=== PATIENT | female | born 1955 | race Caucasian/White ===

== ENCOUNTER → 2017-11-08 07:46 | Outpatient (CLI) | payer MEDICAID, SELFPAY ==
[2017-11-08 08:10] LABS: Blood Urea Nitrogen 20 mg/dL (7-18); Creatinine,Serum 1.12 mg/dL (0.55-1.02); Estimated Glomerular Filt Rate 49 ml/min (>60); GFR (African American) 60 ML/MIN (>60)
--- NOTE | 2017-11-08 08:24 | CT_ITS ---
CT angio chest Ordering Physician: Rajiv Dupree MD Patient Age: 61 years: Female HISTORY: ITS.REASON: pulmonary artery aneurysm. Follow-up. Also follow-up Small Nodules TECHNIQUE: Helical acquisition obtained following the bolus administration of 60 mL of Isovue 370 followed by a saline bolus. Axial, sagittal, and coronal reformatted images are generated and reviewed. COMPARISON: 07/17/2015 FINDINGS: The study was tailored for the pulmonary arteries. There is diffuse aneurysmal dilatation of the main pulmonary artery trunk as well as the proximal aspect of both right and left main pulmonary arteries again seen and unchanged since last years study 03/11/2017.. On the sagittalqprojection the main pulmonary artery measures up to 6.6 cm vertical dimension. On previous study this same site measures 6.7 cm mass with no significant change. I measure maximum transverse dimension of the main pulmonary trunk this where it branches at 5.4 cm unchanged since prior study as well.. . Proximal right main pulmonary artery measures up to 3.8 cm a stable . proximal left pulmonary trunk measures up to 3.2 cm. Unchanged. . No pulmonary embolus evidence identified . There are coronary artery calcifications. The heart size is normal. There is mild ectasia of the proximal ascending aorta measuring up to 4.1 cm and basically stable.. 1 mm smaller measurement . There is mild dilatation of the proximal descending thoracic aortameasuring up to 3.5 cm and contains a which if anything appears slightly diminished x 2 mm. There are centrilobular emphysematous changes with hyperinflation and mild bronchialthickening consistent with obstructive chronic bronchitis. Biapical pleural thickening. There are scattered faint nodular densities in the lungs which appear stable measuring up to 4 mm in the right upper lobe. Stable unimpressive can be followed in one year . No pulmonary infiltrates. No pleural effusions or pleural findings.. Calcified granulomas present in the left lower lobe. There remains some increased soft tissue density in the right hilum isunchanged. As are few tiny nodes at the AP window overlying aorta IMPRESSION: 1. Overall no change in the diffuse aneurysmal dilatation of the main pulmonaryartery and right and left main pulmonary artery trunks. 2. No significant change mild aneurysmal dilatation of the thoracic aorta. If anything incrementally less pronounced today but this may be due to blood pressure or phase of cardiac cycle. 3. Stable Centrilobular emphysematous changes with obstructive chronic bronchitis. scattered small pulmonary nodules which appear stable
== END ==
PROVIDERS: PCP Family Medicine; Visit Provider Internal Medicine
DX: I28.1 Aneurysm of pulmonary artery (principal)
CPT/HCPCS: 36415; 71275; 82565; 84520; Q9967

== ENCOUNTER → 2017-11-30 08:36 | Outpatient (POV) | payer MEDICAID, SELFPAY | PROVIDERS: PCP Family Medicine; Visit Provider Internal Medicine | DX: Z00.00 Encounter for general adult medical examination without abnormal findings (principal) ==

== ENCOUNTER → 2018-08-16 10:57 | Outpatient (CLI) | payer MEDICAID, SELFPAY ==
[2018-08-16 12:34] LABS: Alanine Aminotransferase 24 U/L (12-78); Albumin Level 4.4 gm/dL (3.4-5.0); Alkaline Phosphatase 87 U/L (46-116); Aspartate Amino Transferase 19 U/L (15-37); Bilirubin,Direct 0.2 mg/dL (0.0-0.2); Bilirubin,Indirect 0.8 mg/dL (0.0-0.9); Chol/HDL Ratio 2.2 (1-3.5); Cholesterol 171 mg/dL (140-200); HDL Cholesterol 78 mg/dL (29-89); LDL Cholesterol 77 mg/dL (0-130); Total Protein,Serum 7.3 gm/dL (6.4-8.2); Triglycerides 80 mg/dL (30-200); VLDL Cholesterol 16 mg/dL (0-40)
== END ==
PROVIDERS: Visit Provider Internal Medicine
DX: I10 Essential (primary) hypertension (principal); I25.10 Atherosclerotic heart disease of native coronary artery without angina pectoris
CPT/HCPCS: 36415; 80061; 80076

== ENCOUNTER → 2018-08-25 08:21 | Outpatient (CLI) | payer MEDICAID, SELFPAY ==
--- NOTE | 2018-08-25 08:25 | CA_ITS ---
PROCEDURE: 2-D M-mode and color Doppler study INDICATIONS FOR THE TEST: Chest pain COPDX Heart MurmurX Tobacco SmokingEX Palpitations Fatigue Syncope Edema HypertensionXDiabetes Mellitus Rheumatic Fever SOB CROOKS Obesity HyperlipidemiaX Family History HD Additional History PATIENT INFORMATION HEIGHT: 67 WEIGHT:142 GENDER: Female B/P:142/69 2-D/M-MODE INTERPRETATION: 2-D MEASUREMENTS OBSERVED VALUES IN CMS Right Ventricular Dimension (RVDd) 1.6 Interventricular Septum (Thickness)(IVsd) .8 Left Ventricular Internal Dimensions(LVIDd) 4.8 Left Ventricular Posterior Wall (Thickness)(LVPWd) .9 Aortic Root 3.2 Aortic Cusp Separation 1.5 Left Atrial Dimensions (LAD) 1.7 2D 1. Patent is mildly enlarged, left ventricle is normal size, there is no concentric left ventricular hypertrophy, visually ejection fraction 55% with no regional wall motion abnormality. 2. The right atrium and right ventricle are mildly enlarged with normal contractility. 3. The aortic valve is minimally thickened and fibrosed. 4. Mitral and tricuspid valvular grossly normal. 5. The pulmonic valve is poorly visualized. DOPPLER INTERROGATION: Doppler interrogation of the aortic, mitral and tricuspid valvular presence of an tricuspid regurgitation, tricuspid regurgitation jet velocity is inadequate for calculation of the right ventricular systolic pressure, diastolic parameters are within normal range. CONCLUSION: 1. Mild biatrial enlargement, normal left ventricular size, visually estimated ejection fraction 55% with no regional wall motion abnormality, diastolic parameters are within normal range. 2. Mildly enlarged right ventricle with normal contractility. 3. Mild mitral and tricuspid regurgitation 4. No significant pericardial effusion noted.
--- NOTE | 2018-08-25 08:54 | CT_ITS ---
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 Sagittal, and coronal reformatted images are also generated and reviewed. All CT scans at the facility use one or more dose reduction, viz: automated exposure control, ma/kV adjustment per patient size (including targeted exams where dose is matched to indication, i.e. head), or iterative reconstruction technique. FINDINGS: There is mild dilatation of the ascending thoracic aorta at 4.2 cm not significantly changed. The aorta is normal in caliber at the level of the great vessels and then becomes dilated again distal to the origin of the left subclavian artery measuring approximately 3 cm in transverse dimension. There is dilatation of the main pulmonary artery and right and left main pulmonary arteries. The distal aspect main pulmonary artery measures approximately 5 cm. The proximal right main pulmonary artery measures 4.2 cm unchanged. The proximal left main pulmonary artery measures approximately 3 cm unchanged. No pulmonary emboli evident. Normal heart size. No mediastinal or hilar mass or adenopathy. There is mild biapical fibrotic change. There are scattered small pulmonary nodular opacities which are not significant change. Calcified granuloma is present in the left lower lobe. No lobar consolidation or collapse. Calcific plaques present in the proximal aspect of the carotid arteries on both sides. There is a small hiatal hernia. Thoracolumbar scoliosis convex left noted. IMPRESSION: Overall no significant change in the thoracic aortic aneurysm and aneurysmal dilatation of the pulmonary arteries as detailed above.
[2018-08-25 09:53] LABS: Blood Urea Nitrogen 18 mg/dL (7-18); Creatinine,Serum 1.14 mg/dL (0.55-1.02); Estimated Glomerular Filt Rate 48 ml/min (>60); GFR (African American) 58 ML/MIN (>60)
== END ==
PROVIDERS: PCP Family Medicine; Visit Provider Internal Medicine
DX: I49.3 Ventricular premature depolarization (principal); I28.1 Aneurysm of pulmonary artery; I27.20 Pulmonary hypertension, unspecified; I25.10 Atherosclerotic heart disease of native coronary artery without angina pectoris; E78.49 Other hyperlipidemia; I10 Essential (primary) hypertension; I11.9 Hypertensive heart disease without heart failure; I71.2 Thoracic aortic aneurysm, without rupture; J43.8 Other emphysema; R00.1 Bradycardia, unspecified; R94.31 Abnormal electrocardiogram [ECG] [EKG]
CPT/HCPCS: 36415; 71275; 82565; 84520; 93306

== ENCOUNTER → 2018-11-29 13:18 | Outpatient (CLI) | payer MEDICAID, SELFPAY ==
[2018-11-29 13:55] VITALS: PULSE 58; PULSE 60
== END ==
PROVIDERS: PCP Family Medicine; Visit Provider Internal Medicine
DX: J44.9 Chronic obstructive pulmonary disease, unspecified (principal)
CPT/HCPCS: 94060; 94640

== ENCOUNTER → 2018-12-13 10:16 | Outpatient (POV) | payer MEDICAID, SELFPAY | PROVIDERS: Visit Provider Internal Medicine | DX: Z00.00 Encounter for general adult medical examination without abnormal findings (principal) ==

== ENCOUNTER → 2019-08-15 08:47 | Outpatient (CLI) | payer OTHER, SELFPAY ==
--- NOTE | 2019-08-15 09:00 | CT_ITS ---
PROCEDURE: CT ANGIO CHEST CLINCIAL INDICATION: known thoracic aortic aneurysm, due for yearly f/u Follow-up thoracic aortic aneurysm COMPARISON: [facility] CT angio chest from 08/25/2018 TECHNIQUE: IV Contrast: 70ML OPTIRAY 350 Axial images obtained with sagittal and coronal reformats. All CT scans at the facility use one or more dose reduction, viz: automated exposure control, ma/kV adjustment per patient size (including targeted exams where dose is matched to indication, i.e. head), or iterative reconstruction technique. FINDINGS: There is mild ectasia the ascending aorta measuring up to 4.1 cm AP and transverse overall not significantly changed. No evidence dissection. The aorta comes normal in caliber at the arch and then once again to come slightly dilated at 3.3 cm not significantly changed coronary artery calcifications are present. There is dilatation of the main pulmonary artery measuring up to 5.2 cm transverse not significantly changed. The right main pulmonary artery measures up to 3.8 cm and left main pulmonary artery measures up to 3.3 cm. These findings are not significantly changed. No mediastinal or hilar mass or adenopathy. There are mild biapical fibrotic changes with COPD changes. 3 mm noncalcified nodules present in the right upper lobe unchanged. No suspicious pulmonary nodules. The calcified granuloma is present in the left lower lobe. There are degenerative changes in the thoracic spine with S shaped scoliosis. IMPRESSION: Overall stable CT appearance of the chest. No significant change in the ectasia of the ascending aorta with fusiform aneurysmal dilatation of the pulmonary artery trunk and right and left main pulmonary artery consistent with pulmonary arterial hypertension.. Dictated by: Jose Bertrand MD 08/16/2019 13:25 Electronically signed by Jose Bertrand MD in [place] 08/16/2019 13:25
[2019-08-15 09:12] LABS: Blood Urea Nitrogen 29 mg/dL (7-18); Creatinine,Serum 1.32 mg/dL (0.55-1.02); Estimated Glomerular Filt Rate 41 ml/min (>60); GFR (African American) 49 ML/MIN (>60)
== END ==
PROVIDERS: PCP Family Medicine; Visit Provider Nurse Practitioner Family
DX: I25.10 Atherosclerotic heart disease of native coronary artery without angina pectoris (principal); I71.2 Thoracic aortic aneurysm, without rupture; R00.2 Palpitations
CPT/HCPCS: 36415; 71275; 82565; 84520; Q9967

== ENCOUNTER → 2020-07-17 10:46 | Outpatient (CLI) | payer MEDICARE, OTHER, SELFPAY ==
[2020-07-17 12:33] LABS: Alanine Aminotransferase 23 U/L (12-78); Aspartate Amino Transferase 40 U/L (14-36); Bilirubin,Unconjugated 1.2 mg/dL (0.0-1.1)
[2020-07-17 12:34] LABS: Albumin Level 4.9 g/dl (3.5-5.0); Alkaline Phosphatase 97 U/L (38-126); Bilirubin,Direct 0.1 mg/dl (0.0-0.4); Bilirubin,Indirect 1.2 mg/dL (0.0-0.9); Bilirubin,Total 1.3 mg/dl (0.2-1.3); Chol/HDL Ratio 2.1 (1-3.5); Cholesterol 205 mg/dl (140-200); HDL Cholesterol 98 mg/dl (40-60); Total Protein,Serum 7.7 g/dl (6.3-8.2); Triglycerides 136 mg/dl (30-150); VLDL Cholesterol 27 mg/dL (0-40)
[2020-07-17 12:45] LABS: Direct LDL Cholesterol 67.35 mg/dL (100-129)
== END ==
PROVIDERS: Visit Provider Urology
DX: E78.2 Mixed hyperlipidemia (principal); I11.9 Hypertensive heart disease without heart failure; I25.10 Atherosclerotic heart disease of native coronary artery without angina pectoris; I27.20 Pulmonary hypertension, unspecified; I71.2 Thoracic aortic aneurysm, without rupture
CPT/HCPCS: 36415; 80061; 80076

== ENCOUNTER → 2020-08-09 09:28 | Outpatient (CLI) | payer MEDICARE, OTHER, SELFPAY | PROVIDERS: PCP Family Medicine; Visit Provider Internal Medicine Pulmonary Disease | DX: R06.09 Other forms of dyspnea (principal) | CPT/HCPCS: 94060; 94618; 94640; 94726; 94729; 94762 ==

== ENCOUNTER → 2020-09-06 09:11 | Outpatient (CLI) | payer MEDICARE, OTHER, SELFPAY ==
--- NOTE | 2020-09-06 09:25 | CT_ITS ---
PROCEDURE: CT ANGIO CHEST CLINCIAL INDICATION: Thoracic aneurysm 4.1 cm FE (2019) Follow-up thoracic aortic aneurysm COMPARISON: CT CT ANGIO CHEST from 08/15/2019 TECHNIQUE: IV Contrast: 70ML Isovue 370 Axial images obtained with sagittal and coronal reformats. All CT scans at the facility use one or more dose reduction, viz: automated exposure control, ma/kV adjustment per patient size (including targeted exams where dose is matched to indication, i.e. head), or iterative reconstruction technique. FINDINGS: There remains severe dilatation of the main pulmonary artery and the right and left pulmonary artery similar to the previous exam there remains mild fusiform dilatation of the ascending aorta at 4.1 cm. There is no evidence of aortic dissection. No evidence of pulmonary embolus. No mediastinal or hilar mass or adenopathy. Coronary artery calcifications are present. Biapical fibrotic changes are noted with atelectatic or fibrotic changes in the lung bases. No infiltrates or effusions. S-shaped curvature of the thoracic spine is unchanged. Multilevel degenerative disc disease noted in the thoracic spine. IMPRESSION: Overall stable CT appearance of the chest. No change in the diffuse dilatation of the main and right and left pulmonary arteries consistent with pulmonary arterial hypertension. No change mild fusiform dilatation of the thoracic aorta. Dictated by: Jose Bertrand MD 09/07/2020 17:18 Jose Bertrand MD in [place] 09/07/2020 17:18
[2020-09-06 09:43] LABS: Blood Urea Nitrogen 18 mg/dl (7-17); Estimated Glomerular Filt Rate 45 ml/min (>60); GFR (African American) 55 ML/MIN (>60)
== END ==
PROVIDERS: PCP Family Medicine; Visit Provider Urology
DX: E78.2 Mixed hyperlipidemia (principal); I11.9 Hypertensive heart disease without heart failure; I25.10 Atherosclerotic heart disease of native coronary artery without angina pectoris; I27.20 Pulmonary hypertension, unspecified; I71.2 Thoracic aortic aneurysm, without rupture
CPT/HCPCS: 36415; 71275; 82565; 84520; Q9967

== ENCOUNTER → 2020-11-08 12:43 | Outpatient (CLI) | payer MEDICARE, OTHER, SELFPAY ==
--- NOTE | 2020-11-08 12:45 | CA_ITS ---
APPROVED REPORT EXAM: Comprehensive 2D, Doppler, and color-flow Echocardiogram Fire Systems Inspector: Arlin Christine CRT Ht: 5 ft 7 in Wt: 149lbs BSA: 1.78 BP: 171/59 mmHg Indications: COPD, Shortness of Breath 2D Dimensions LVOT 1.98 cm (M/F) 1.5-2.5 LA Volume 51.30 mL LA Volume Index 28.80 mL/m2 (M/F) 16-34 M-Mode Dimensions RVDd 2.71 cm (0.9-2.6) LA Diam 4.09 cm (1.9-4.0) LVDd 4.19 cm (3.5-5.7) Ao Diam 2.91 cm (2.0-3.7) LVDs 3.05 cm (3.5-5.7) IVSd 1.61 cm (0.6-1.1) PWd 0.40 cm (0.6-1.1) EF (Teich) 53.40% FS 27.20% EDV (Teich) 78.10 mL TAPSE 1.98 (<1.7) ESV (Teich) 36.40 mL LV Diastology E Decel Time 147.00 (160-240 msec) E/A Ratio 1.44 MED E' 9.50 (< 7 cm/sec) MED A' 9.80 cm/s E'/MED E' Ratio 8.74 (>14) LAT E' 10.00 (<10 cm/sec) LAT A' 5.80 cm/s E/LAT E' Ratio 8.30 (>14) Aortic Valve AI PHT 466.00 ms AO Peak GR. 7.80 mmHg Mitral Valve MV A Velocity 58.00 (40-130 cm/s) E/A Ratio 1.44 MV Decel. Time 147.00 (160-240 ms) Pulmonary Valve PV Peak Velocity 106.00 (50-150 cm/s) Tricuspid Valve TR P. Velocity 213.00 cm/s RAP Estimate 10.00 mmHg RVSP 28.20 mmHg Left Ventricle Left atrium is moderately enlarged, left ventricle is normal size, there is mild concentric left ventricular hypertrophy, visually estimated ejection fraction 55% with no regional wall motion abnormality, grade 1 diastolic dysfunction seen without tissue Doppler evidence of raise left atrial pressure. Right Ventricle Right atrium and right ventricle are qualitatively moderately enlarged with normal contractility. Aortic Valve Aortic valve is minimally thickened and fibrosed, there is no aortic stenosis or aortic insufficiency. Mitral Valve Mitral valve is minimally thickened, there is mild mitral regurgitation. Tricuspid Valve Tricuspid grossly normal, there is trace tricuspid regurgitation, tricuspid regurgitation jet velocity is inadequate for calculation of the right ventricular systolic pressure. Pulmonic Valve Pulmonic valve is minimally fibrosed, there is mild pulmonic insufficiency. Great Vessels Aortic root is normal size. Pericardium No significant pericardial effusion noted. Conclusion 1. Moderate biatrial enlargement, normal left ventricular size, mild concentric left ventricular hypertrophy, visually estimated ejection fraction 55% with no regional wall motion abnormality, grade 1 diastolic dysfunction without tissue Doppler evidence of raise left atrial pressure. 2. Thickened and calcified aortic valve without aortic stenosis or aortic insufficiency. 3. Mild mitral and trace tricuspid regurgitation. 4. Moderately enlarged right ventricle with normal contractility, inferior vena cava is normal size with normal inspiratory collapse. 5. No significant pericardial effusion noted. Electronically signed by : Rashaun Cleary, 11/10/2020 21:18:29
== END ==
PROVIDERS: PCP Family Medicine; Visit Provider Internal Medicine Pulmonary Disease
DX: I28.8 Other diseases of pulmonary vessels (principal); R00.2 Palpitations
CPT/HCPCS: 93306

== ENCOUNTER → 2021-07-21 08:54 | Outpatient (CLI) | payer MEDICARE, OTHER, SELFPAY ==
[2021-07-21 09:15] LABS: Blood Urea Nitrogen 24 mg/dl (7-17); Estimated Glomerular Filt Rate 38 ml/min (>60); GFR (African American) 46 ML/MIN (>60)
--- NOTE | 2021-07-21 09:42 | CT_ITS ---
FINAL REPORT CLINICAL HISTORY: aneurysm// COMPARISON: 09/06/2020 FINDINGS: Thin section axial CT images of the chest were obtained with contrast. 3D reformatted images were also obtained. This study was performed with techniques to keep radiation doses as low as reasonably achievable (ALARA). Individualized dose reduction techniques using automated exposure control or adjustment of mA and/or kV according to the patient''s size were employed. There is enlargement of the central pulmonary arteries consistent with pulmonary arterial hypertension, unchanged from prior exam. There is no evidence of pulmonary embolism. There is an ascending aortic aneurysm measuring 4.3 cm, stable from prior exam. The descending thoracic aorta is within normal limits. There is no evidence of mediastinal or hilar mass or adenopathy. There is no evidence of pulmonary mass or nodule. No localized inflammatory process is seen within the lungs. Limited images of the upper abdomen are unremarkable. IMPRESSION: No evidence of pulmonary embolism. Stable ascending aortic aneurysm and findings of pulmonary arterial hypertension. Reviewed, Interpreted and Dictated by Mono Harris III, MD Transcribed by Latoya Patton Authenticated by Mono Harris III, MD on 07/21/2021 01:24:24 PM [facility]
== END ==
PROVIDERS: PCP Family Medicine; Visit Provider Nurse Practitioner Family
DX: R00.1 Bradycardia, unspecified; R00.2 Palpitations; I25.10 Atherosclerotic heart disease of native coronary artery without angina pectoris; I11.9 Hypertensive heart disease without heart failure; E78.5 Hyperlipidemia, unspecified; I27.20 Pulmonary hypertension, unspecified; I28.1 Aneurysm of pulmonary artery; I77.810 Thoracic aortic ectasia; J43.9 Emphysema, unspecified; R94.31 Abnormal electrocardiogram [ECG] [EKG]
CPT/HCPCS: 36415; 71275; 82565; 84520; Q9967

== ENCOUNTER 2022-04-19 11:27 | Emergency (ER) | payer MEDICARE, MEDICAID, SELFPAY ==
[2022-04-19 11:53] VITALS: BP 118/56; PULSE 62; RESP 16; TEMP 36.4; O2SAT 95; BMI 23.8
--- NOTE | 2022-04-19 11:59 | EXP.UTC ---
Discharge Plan Disposition Patient Disposition: Home, Self-Care Condition: Good Prescriptions Prescriptions: New cefdinir 300 mg capsule 300 mg PO BID Qty: 20 0RF benzonatate [benzonatate] 100 mg capsule 100 mg PO TIDP PRN (Reason: Cough) Qty: 30 0RF methylprednisolone 4 mg Tablets,Dose Pack 4 mg PO DIRECTED Qty: 21 0RF No Action vitamin B complex [B Complex-Vitamin B12] Tablet 1 tab PO DAILY aspirin [Adult Low Dose Aspirin] 81 mg tablet,delayed release (DR/EC) 81 mg PO DAILY Qty: 90 3RF atorvastatin 40 mg tablet See Rx Instructions .ROUTE .COMPLEX Qty: 90 3RF Dose Instruction: Take 1 tablet by mouth once daily Rx Instructions: Take 1 tablet by mouth once daily bisoprolol fumarate 5 mg tablet 5 mg PO DAILY Qty: 90 3RF losartan-hydrochlorothiazide 100-25 mg tablet 1 tab PO DAILY Qty: 90 3RF marzprm-oyaw-erpob-oreg-capryl 100 mg-150 mg- 50 mg-150 mg capsule PO cetirizine [Allergy Relief (cetirizine)] 5 mg tablet 5 mg PO DAILY PRN (Reason: allergy symptoms) Qty: 60 0RF fluticasone propionate [Flonase Allergy Relief] 50 mcg/actuation spray,suspension 2 spray intranasal DAILY 90 Days Qty: 16 3RF Rx Instructions: administer into each nostril azelastine 205.5 mcg (0.15 %) spray,non-aerosol 2 spray intranasal HS 90 Days Qty: 30 3RF Rx Instructions: administer into each nostril albuterol sulfate [Ventolin HFA] 90 mcg/actuation HFA aerosol inhaler 1 inh INHALATION QID PRN (Reason: shortness of breath or wheezing) Qty: 8.5 12RF Anoro Ellipta 62.5-25 mcg/actuation blister with device 1 inh INHALATION DAILY 90 Days Qty: 90 3RF albuterol sulfate 0.63 mg/3 mL solution for nebulization 0.63 mg INHALATION Q6H PRN (Reason: shortness of breath or wheezing) 90 Days Qty: 75 2RF Referrals Follow up/Referrals: Venkatesh Ceballos MD [Primary Care Provider] - See instructions Activity Restrictions/Add. Instructions Additional Instructions/Restrictions: Drink plenty of fluids. Take tylenol or ibuprofen for pain or fever. Take the medications as directed. Follow up with your regular doctor. GO TO THE ER FOR ANY WORSENING SYMPTOMS Quarantine until you know the results of your covid-19 test. Notify your school or workplace of your results and follow their instructions regarding return to work/school. Clinical Impressions Clinical Impression: COPD (chronic obstructive pulmonary disease) with emphysema, Sinusitis Instructions Patient Instructions: Sinusitis, Middle Ear Infection, Chronic Obstructive Pulmonary Disease, DI for Sinusitis Discharge ED [place] Batista [facility] [place] General Stated complaint: cough, lightheaded, h/a, congestion Mode of Arrival: Ambulatory Source of Information: Patient Limitations: No Limitations Time Seen by Provider: 04/19/22 11:59 Description of Symptoms (Recalled from Triage Doc. by RN): pt comes in with c/o cough, sneezing, green mucus, ear pain, dizziness. pt states that she passed out twice this week. HEENT Symptoms (Recalled from RN notes): Yes Resp Symptoms (Recalled from RN notes): No Skin Symptoms (Recalled from RN notes): No MS Symptoms (Recalled from RN notes): No Functional Status (Recalled from RN notes): n/a History of Present Illness Provider Complaint: She states that she has had sinus congestion, cough, bilateral ear pain, and she has felt bad for the past 4 days. She had an episode of coughing around 3 days ago that caused her to get very dizzy and almost pass out. She denies any chest pain. Related Data Home Medications Medication Instructions Recorded Confirmed vitamin B complex (B 1 tab PO DAILY 07/16/21 04/13/22 Complex-Vitamin B12 tablet) tumeric 100 mg-remington 150 mg-olive cap PO 01/14/22 04/13/22 50 mg-oreg 150 mg-caprylate capsule Previous Rx's Medication Instructions Recorded aspirin 81 mg tablet,delayed 81 mg PO DAILY
--- NOTE | 2022-04-19 12:00 | ECG_ITS ---
APPROVED REPORT Exam: Resting ECG HR:62 bpm ECG Measurements Heart Rate 62 AXES IN 135 P 83 QRSd 98 QRS 29 QT 426 T 66 QTc 432 Conclusion SINUS RHYTHM NORMAL ECG UNCONFIRMED REPORT Electronically signed by : Hans Yip MD 04/20/2022 18:01:22
[2022-04-19 12:26] VITALS: BP 105/64; BP 110/68; PULSE 74; PULSE 76
[2022-04-19 12:47] VITALS: BP 110/68; PULSE 76; RESP 16; TEMP 36.4
== END 2022-04-19 12:52 | disposition home or self-care (01) ==
PROVIDERS: Emergency Provider Nurse Practitioner Family; PCP Family Medicine
DX: U07.1 COVID-19 (principal); J43.9 Emphysema, unspecified; J32.9 Chronic sinusitis, unspecified
CPT/HCPCS: 93005; 99212; C9803; G0463; U0003; U0005

== ENCOUNTER → 2022-08-21 13:10 | Outpatient (CLI) | payer MEDICARE, MEDICAID, SELFPAY ==
[2022-08-21 14:57] LABS: Blood Urea Nitrogen 33 mg/dl (7-17); Estimated Glomerular Filt Rate 35 ml/min (>60); GFR (African American) 42 ML/MIN (>60)
== END ==
PROVIDERS: Nurse Practitioner Family; PCP Family Medicine; Visit Provider Internal Medicine
DX: Z01.812 Encounter for preprocedural laboratory examination (principal)
CPT/HCPCS: 36415; 82565; 84520

== ENCOUNTER → 2022-08-24 12:39 | Outpatient (CLI) | payer MEDICARE, MEDICAID, SELFPAY ==
--- NOTE | 2022-08-24 12:39 | CT_ITS ---
FINAL REPORT TECHNIQUE: Postcontrast axial images of the chest were performed in a CTA protocol. This study was performed with techniques to keep radiation doses as low as reasonably achievable, (ALARA). Individualized dose reduction technique using automated exposure control or adjustment of mA and/or kV according to the patient's size were employed. CLINICAL HISTORY: thoracic aortic aneurysm. Hx asthma, COPD. Former smoker. COMPARISON: 07/21/2021 FINDINGS: The heart is normal in size. No adenopathy is identified. No pleural or pericardial effusion is identified. Again seen is an ascending aortic aneurysm measuring 4.5 cm, previously measuring 4.3 cm. Main pulmonary arteries are again seen to be enlarged consistent with pulmonary arterial hypertension. There is no filling defect to suggest central pulmonary embolism. There is granulomatous disease. Biapical scarring is stable. There is also a stable, less than 5 mm nodule in the right upper lobe. No new nodule is identified. The images of the upper abdomen demonstrate a small hiatal hernia but are otherwise unremarkable. IMPRESSION: Stable to slightly increased ascending aortic aneurysm. Stable enlargement of the pulmonary arteries consistent with pulmonary arterial hypertension. Reviewed, Interpreted and Dictated by Akua Godwin MD Transcribed by Latoya Patton Authenticated and [facility]
--- NOTE | 2022-08-24 13:33 | CA_ITS ---
APPROVED REPORT EXAM: Comprehensive 2D, Doppler, and color-flow Echocardiogram Human Resource Intern: Vanessa Roth RDCS Ht: 5 ft 6 in Wt: 170lbs BSA: 1.87 BP: 137/81 mmHg Indications: CP 2D Dimensions LVOT 1.79 cm (M/F) 1.5-2.5 M-Mode Dimensions RVDd 3.04 cm (0.9-2.6) LA Diam 1.97 cm (1.9-4.0) LVDd 4.08 cm (3.5-5.7) Ao Diam 3.19 cm (2.0-3.7) LVDs 3.47 cm (3.5-5.7) IVSd 0.72 cm (0.6-1.1) PWd 0.79 cm (0.6-1.1) EF (Teich) 32.20% FS 15.00% EDV (Teich) 73.40 mL ESV (Teich) 49.80 mL LV Diastology E Decel Time 190.00 (160-240 msec) E/A Ratio 1.2 MED E' 8.30 (< 7 cm/sec) E'/MED E' Ratio 9.16 (>14) LAT E' 10.50 (<10 cm/sec) E/LAT E' Ratio 7.24 (>14) Aortic Valve LVOT Max 104.00 (70-110 cm/s) LVOT VTI 25.97 cm AoV Peak Bethel. 159.00 (50-130 cm/s) AO Peak GR. 10.10 mmHg AO Mean GR. 5.00 (<5 mmHg) AO VTI 36.00 (18-25 cm) VIKRAM (VTI) 1.82 (2.5-4.5 cm2) Mitral Valve MV E Max Bethel. 76.00 (40-130 cm/s) MV A Velocity 66.00 (40-130 cm/s) E/A Ratio 1.14 MV Decel. Time 190.00 (160-240 ms) MV PHT 56.00 ms Tricuspid Valve TR P. Velocity 274.00 cm/s RAP Estimate 10.00 mmHg RVSP 40.00 mmHg Left Ventricle Left atrium is mildly enlarged, left ventricle is normal size, estimated ejection fraction 55% with no regional wall motion abnormality, diastolic parameters are inconclusive. Right Ventricle Right atrium and right ventricle are mildly enlarged with normal contractility. Aortic Valve Aortic valve is minimally thickened and fibrosed there is no aortic stenosis, there is trace aortic insufficiency. Mitral Valve Mitral valve is grossly normal, there is trace mitral regurgitation. Tricuspid Valve Tricuspid valve grossly normal, there is trace tricuspid regurgitation, tricuspid regurgitation jet velocity is inadequate for calculation of the right ventricular systolic pressure. Pulmonic Valve Pulmonic valve is poorly visualized. Great Vessels Aortic root is normal size. Inferior vena cava is poorly visualized. Pericardium No significant pericardial effusion noted. Conclusion 1. Mild biatrial enlargement, normal left ventricular size, estimated ejection fraction 55% with no regional wall motion abnormality. Diastolic parameters are inconclusive. 2. Mildly enlarged right ventricle with normal contractility. 3. Trace aortic, mitral and tricuspid regurgitation. 4. No significant pericardial effusion noted. 5. Inferior vena cava is poorly visualized. Electronically signed by : Rashaun Cleary MD 08/25/2022 06:27:46
== END ==
PROVIDERS: PCP Family Medicine; Visit Provider Nurse Practitioner Family
DX: I25.10 Atherosclerotic heart disease of native coronary artery without angina pectoris; I11.9 Hypertensive heart disease without heart failure; I27.20 Pulmonary hypertension, unspecified; E78.2 Mixed hyperlipidemia; I77.810 Thoracic aortic ectasia
CPT/HCPCS: 71275; 93306; Q9967

== ENCOUNTER → 2023-02-18 13:10 | Outpatient (CLI) | payer MEDICARE, SELFPAY ==
--- NOTE | 2023-02-18 13:46 | CT_ITS ---
FINAL REPORT CLINICAL HISTORY: aneurysm THORACIC COMPARISON: 08/24/2022 FINDINGS: Thin section axial CT images of the chest were obtained with contrast. 3D reformatted images were also obtained. This study was performed with techniques to keep radiation doses as low as reasonably achievable (ALARA). Individualized dose reduction techniques using automated exposure control or adjustment of mA and/or kV according to the patient''s size were employed. There is no evidence of pulmonary embolism. There is ectasia of the ascending aorta measuring 40 mm, stable. The descending thoracic aorta measures 25 mm, stable. There is a focal aneurysm along the lateral aspect of the aortic arch. Aortic arch measures 31 mm at this level, stable. There is marked enlargement of the central pulmonary arteries consistent with pulmonary arterial hypertension. This is stable since the prior. There is no evidence of mediastinal or hilar mass or adenopathy. There is no evidence of pulmonary mass or nodule. No localized inflammatory process is seen within the lungs. There is mild scarring. IMPRESSION: No evidence of pulmonary embolism. Stable aneurysm at the aortic arch. Stable findings consistent with pulmonary arterial hypertension. No acute abnormality. Reviewed, Interpreted and Dictated by Mono Harris III, MD Transcribed by Rika Sousa Authenticated and [facility]
[2023-02-18 14:05] LABS: Basophils % 0.6 % (0.1-2.0); Eosinophils # 0.2 K/mm3 (0.0-0.4); Eosinophils % 2.1 % (0.1-12.0); Hematocrit 39.2 % (37.0-47.0); Hemoglobin 12.4 g/dL (12.2-16.2); Lymphocytes # 2.4 K/mm3 (0.7-4.5); Lymphocytes % 31.8 % (10-50); Mean Corpuscular HGB Conc 31.6 g/dL (31.8-35.4); Mean Corpuscular Hemoglobin 30.3 pg (27.0-31.2); Mean Corpuscular Volume 95.8 fl (81-99); Mean Platelet Volume 7.9 fl (7.4-10.4); Monocytes # 0.5 K/mm3 (0.1-1.0); Neutrophils # 4.5 K/mm3 (1.8-7.8); Neutrophils % 58.5 % (37.0-80.0); Platelet Count 238 K/mm3 (142-424); Red Blood Count 4.09 M/mm3 (4.20-5.40); Red Cell Distribution Width 13.6 % (11.5-17.5); White Blood Count 7.6 K/mm3 (4.8-10.8)
[2023-02-18 14:15] LABS: Alanine Aminotransferase 22 U/L (12-78); Albumin Level 4.5 g/dl (3.5-5.0); Alkaline Phosphatase 82 U/L (38-126); Anion Gap 11.9 mEq/L (5-15); Aspartate Amino Transferase 37 U/L (14-36); Bilirubin,Unconjugated 1.1 mg/dL (0.0-1.1); Blood Urea Nitrogen 25 mg/dl (7-17); Calcium 9.4 mg/dl (8.4-10.2); Carbon Dioxide 29 mmol/L (22.0-30.0); Chloride 103 mmol/L (98-107); Chol/HDL Ratio 2.3 (1-3.5); Cholesterol 176 mg/dl (140-200); Estimated Glomerular Filt Rate 45 ml/min (>60); GFR (African American) 54 ML/MIN (>60); Glucose 119 mg/dl (74-100); HDL Cholesterol 76 mg/dl (40-60); Magnesium 1.6 mg/dl (1.6-2.3); Potassium 4.9 mmoL/L (3.5-5.1); Sodium 139 mmol/L (136-145); Triglycerides 200 mg/dl (30-150); VLDL Cholesterol 40 mg/dL (0-40)
[2023-02-18 14:26] LABS: Direct LDL Cholesterol 63.91 mg/dL (100-129)
[2023-02-18 14:38] LABS: Free T4 (Free Thyroxine) 1.04 ng/dl (0.78-2.19)
[2023-02-18 14:46] LABS: Thyroid Stimulating Hormone 1.89 uIU/mL (0.465-4.68)
== END ==
PROVIDERS: Internal Medicine; PCP Family Medicine; Visit Provider Nurse Practitioner Family
DX: I71.20 Thoracic aortic aneurysm, without rupture, unspecified (principal); E78.5 Hyperlipidemia, unspecified; I10 Essential (primary) hypertension; I11.9 Hypertensive heart disease without heart failure; I25.10 Atherosclerotic heart disease of native coronary artery without angina pectoris; I27.20 Pulmonary hypertension, unspecified; I28.8 Other diseases of pulmonary vessels; I49.3 Ventricular premature depolarization; I51.89 Other ill-defined heart diseases; I77.810 Thoracic aortic ectasia; J43.9 Emphysema, unspecified; R00.2 Palpitations; R01.1 Cardiac murmur, unspecified; I28.1 Aneurysm of pulmonary artery
CPT/HCPCS: 36415; 71275; 80048; 80061; 80076; 83735; 84439; 84443; 85025; Q9967

== ENCOUNTER → 2023-03-10 12:35 | Outpatient (CLI) | payer MEDICARE, SELFPAY | PROVIDERS: PCP Family Medicine; Visit Provider Internal Medicine Pulmonary Disease | DX: R06.02 Shortness of breath (principal) | CPT/HCPCS: 94060 ==

== ENCOUNTER 2024-02-14 10:33 | Outpatient (CLI) | payer MEDICARE, SELFPAY ==
[2024-02-14 11:16] LABS: Basophils # 0.1 K/mm3 (0-0.2); Basophils % 1.1 % (0.1-2.0); Eosinophils # 0.2 K/mm3 (0.0-0.4); Eosinophils % 2.6 % (0.1-12.0); Hematocrit 39.9 % (37.0-47.0); Hemoglobin 12.7 g/dL (12.2-16.2); Lymphocytes % 26.8 % (10-50); Mean Corpuscular HGB Conc 31.8 g/dL (31.8-35.4); Mean Corpuscular Hemoglobin 30.9 pg (27.0-31.2); Mean Corpuscular Volume 97.1 fl (81-99); Mean Platelet Volume 8.1 fl (7.4-10.4); Monocytes # 0.5 K/mm3 (0.1-1.0); Monocytes % 7.1 % (1.7-9.3); Neutrophils # 4.7 K/mm3 (1.8-7.8); Neutrophils % 62.4 % (37.0-80.0); Platelet Count 249 K/mm3 (142-424); Red Blood Count 4.11 M/mm3 (4.20-5.40); Red Cell Distribution Width 13.9 % (11.5-17.5); White Blood Count 7.5 K/mm3 (4.8-10.8)
[2024-02-14 12:10] LABS: Alanine Aminotransferase 21 U/L (12-78); Albumin Level 4.2 g/dl (3.5-5.0); Alkaline Phosphatase 72 U/L (38-126); Anion Gap 13.1 mEq/L (5-15); Aspartate Amino Transferase 42 U/L (14-36); Bilirubin,Indirect 1.5 mg/dL (0.0-0.9); Bilirubin,Total 1.5 mg/dl (0.2-1.3); Bilirubin,Unconjugated 1.4 mg/dL (0.0-1.1); Blood Urea Nitrogen 23 mg/dl (7-17); Calcium 9.5 mg/dl (8.4-10.2); Carbon Dioxide 26 mmol/L (22.0-30.0); Chloride 104 mmol/L (98-107); Chol/HDL Ratio 2.3 (1-3.5); Cholesterol 176 mg/dl (140-200); Estimated Glomerular Filt Rate 41 ml/min (>60); GFR (African American) 49 ML/MIN (>60); Glucose 91 mg/dl (74-100); HDL Cholesterol 75 mg/dl (40-60); Magnesium 1.6 mg/dl (1.6-2.3); Potassium 4.1 mmoL/L (3.5-5.1); Sodium 139 mmol/L (136-145); Total Protein,Serum 6.8 g/dl (6.3-8.2); Triglycerides 86 mg/dl (30-150); VLDL Cholesterol 17 mg/dL (0-40)
[2024-02-14 13:03] LABS: Direct LDL Cholesterol 60.69 mg/dL (100-129)
[2024-02-14 13:10] LABS: Free T4 (Free Thyroxine) 1.23 ng/dl (0.78-2.19)
[2024-02-14 13:25] LABS: Thyroid Stimulating Hormone 3.11 uIU/mL (0.465-4.68)
== END 2024-02-14 23:59 | disposition home or self-care (01) ==
PROVIDERS: PCP Family Medicine; Visit Provider Nurse Practitioner Family
DX: I25.10 Atherosclerotic heart disease of native coronary artery without angina pectoris (principal); I10 Essential (primary) hypertension; I27.20 Pulmonary hypertension, unspecified; I71.20 Thoracic aortic aneurysm, without rupture, unspecified; E78.2 Mixed hyperlipidemia; J43.2 Centrilobular emphysema
CPT/HCPCS: 36415; 80048; 80061; 80076; 83735; 84439; 84443; 85025

== ENCOUNTER 2024-02-23 13:05 | Outpatient (CLI) | payer MEDICARE, SELFPAY ==
--- NOTE | 2024-02-23 13:06 | CT_ITS ---
FINAL REPORT CLINICAL HISTORY: Thoracic aortic aneurysm COMPARISON: 02/18/2023 FINDINGS: Thin section axial CT images of the chest were obtained with contrast. 3D reformatted images were also obtained. This study was performed with techniques to keep radiation doses as low as reasonably achievable (ALARA). Individualized dose reduction techniques using automated exposure control or adjustment of mA and/or kV according to the patient''s size were employed. There is no evidence of pulmonary embolism. There is ectasia of the ascending aorta measuring 40 mm, stable. There is marked enlargement of the central pulmonary arteries consistent with pulmonary arterial hypertension. There is increased attenuation between the aortic arch and distal main pulmonary artery some of which is calcified. Small patent ductus arteriosus is not excluded. There is no evidence of dissection. There is no evidence of mediastinal or hilar mass or adenopathy. There is no evidence of pulmonary mass or nodule. No localized inflammatory process is seen within the lungs. Mild scarring is identified. Limited images of the upper abdomen are unremarkable. IMPRESSION: No evidence of pulmonary embolism. Stable ectasia of the ascending aorta. Pulmonary arterial hypertension. Questionable small patent ductus arteriosus. Reviewed, Interpreted and Dictated by Mono Harris III, MD Transcribed by Rika Sousa Authenticated and [facility]
[2024-02-23] MEDS: SODIUM CHLORIDE 0.9% 10ML SYR (RAD ONLY) 10 ML IV (13:36)
[2024-02-23] MEDS: 0.9 % SODIUM CHLORIDE 50 ML VIAL IV (13:36)
[2024-02-23] MEDS: IOPAMIDOL-370 (76%);100ML BOTTLE 100 ML IV (13:36)
== END 2024-02-23 23:59 | disposition home or self-care (01) ==
LOC: RAD 13:06
PROVIDERS: PCP Family Medicine; Visit Provider Physician Assistant
DX: I71.20 Thoracic aortic aneurysm, without rupture, unspecified (principal)
CPT/HCPCS: 71275; Q9967

== ENCOUNTER 2024-03-17 09:52 | Outpatient (CLI) | payer MEDICARE, SELFPAY ==
[2024-03-17 11:13] LABS: Alanine Aminotransferase 21 U/L (12-78); Albumin Level 4.1 g/dl (3.5-5.0); Alkaline Phosphatase 70 U/L (38-126); Aspartate Amino Transferase 40 U/L (14-36); Bilirubin,Direct 0.1 mg/dl (0.0-0.4); Bilirubin,Indirect 1.3 mg/dL (0.0-0.9); Bilirubin,Total 1.4 mg/dl (0.2-1.3); Bilirubin,Unconjugated 1.3 mg/dL (0.0-1.1); Total Protein,Serum 6.6 g/dl (6.3-8.2)
== END 2024-03-17 23:59 | disposition home or self-care (01) ==
LOC: LAB 09:53
PROVIDERS: PCP Family Medicine; Visit Provider Nurse Practitioner Family
DX: I28.8 Other diseases of pulmonary vessels (principal); I25.10 Atherosclerotic heart disease of native coronary artery without angina pectoris; I10 Essential (primary) hypertension; I27.20 Pulmonary hypertension, unspecified; E78.2 Mixed hyperlipidemia; I71.20 Thoracic aortic aneurysm, without rupture, unspecified; J43.2 Centrilobular emphysema
CPT/HCPCS: 36415; 80076

== ENCOUNTER 2024-08-18 07:27 | Outpatient (CLI) | payer MEDICARE, SELFPAY ==
--- NOTE | 2024-08-18 07:43 | CA_ITS ---
APPROVED REPORT EXAM: Comprehensive 2D, Doppler, and color-flow Echocardiogram Career Development Coordinator: Shannan Mandujano RVT Ht: 5 ft 7 in Wt: 141lbs BSA: 1.74 BP: 175/67 mmHg Indications: MURMUR,PHTN,COPD,HTN,HLD,THORACIC AA 2D Dimensions LA Volume 41.00 mL LA Volume Index 23.56 mL/m2 (M/F) 16-34 M-Mode Dimensions RVDd 1.90 cm (0.9-2.6) LA Diam 4.00 cm (1.9-4.0) LVDd 4.82 cm (3.5-5.7) LVDs 2.96 cm (3.5-5.7) IVSd 0.53 cm (0.6-1.1) PWd 0.68 cm (0.6-1.1) EF (Teich) 68.80% FS 38.60% EDV (Teich) 108.60 mL TAPSE 3.23 (<1.7) ESV (Teich) 33.90 mL LV Diastology E Decel Time 190 (160-240 msec) E/A Ratio 1.4 Aortic Valve VIKRAM Index 1.06 cm2/m2 AoV Peak Bethel. 137.0 (50-130 cm/s) AI PHT 1850.00 ms AO Peak GR. 7.50 mmHg AO Mean GR. 3.40 (<5 mmHg) AO VTI 31.7 (18-25 cm) VIKRAM (VTI) 1.90 (2.5-4.5 cm2) Mitral Valve MV E Max Bethel. 91.0 (40-130 cm/s) MV A Velocity 65.0 (40-130 cm/s) E/A Ratio 1.40 MV PHT 56.0 ms Pulmonary Valve PV Peak Velocity 197.0 (50-150 cm/s) Tricuspid Valve TR P. Velocity 305.00 cm/s RAP Estimate 10.00 mmHg RVSP 47.30 mmHg Left Ventricle The left ventricle is normal size. The left ventricular systolic function is normal. The left ventricular ejection fraction is within the normal range. There is increased LV wall thickness. There is normal LV segmental wall motion. The left ventricular diastolic function is normal. LVEF is 55%. Right Ventricle Right ventricle is moderately dilated. Right ventricle is mildly hypokinetic. Atria Left atrium is moderately dilated. Right atrium is moderately dilated. There is no Doppler evidence of interatrial shunt. Aortic Valve Aortic valve is mildly thickened. There is no aortic valvular stenosis. Mild aortic regurgitation. Mitral Valve The mitral valve is normal in structure. No evidence of mitral valve stenosis. Mild mitral regurgitation. Tricuspid Valve Tricuspid valve is grossly normal in structure and function. Mild tricuspid regurgitation. RVSP is 45-50 mmHg. Pulmonic Valve The pulmonary valve is normal in structure. Borderline pulmonic stenosis. Peak velocity 2.0 m/s. Mean AV gradient 10 mmHg. Max AV gradient 20 mmHg. Moderate to severe pulmonic regurgitation. Great Vessels The aortic root is normal in size. The ascending aorta is not well-visualized. The IVC is dilated. Pericardium There is no pericardial effusion. Other Information Study Quality: Fair Conclusion Normal LV systolic function. Moderate RV dilation with mild reduction in RV function. Moderate biatrial dilation. 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 Borderline PS (Peak transpulmonic velocity 2.0 m/s. Mean AV gradient 10 mmHg. Max AV gradient 20 mmHg). Mild TR, mild AI, mild MR. Elevated RVSP 45-50 mmHg. Compared to prior study from 08/24/2022, the severity of the NV now worse. Electronically signed by : Amalia Ya MD 08/26/2024 00:13:54
== END 2024-08-18 23:59 | disposition home or self-care (01) ==
LOC: RT 07:28
PROVIDERS: PCP Family Medicine; Visit Provider Nurse Practitioner
DX: I51.7 Cardiomegaly (principal); I34.0 Nonrheumatic mitral (valve) insufficiency; I35.1 Nonrheumatic aortic (valve) insufficiency; I36.1 Nonrheumatic tricuspid (valve) insufficiency; I37.1 Nonrheumatic pulmonary valve insufficiency; R01.1 Cardiac murmur, unspecified
CPT/HCPCS: 93306

== ENCOUNTER 2025-05-30 11:04 | Outpatient (CLI) | payer MEDICARE, SELFPAY ==
[2025-05-30 11:49] LABS: Hematocrit 38.8 % (37.0-47.0); Hemoglobin 12.8 g/dL (12.2-16.2); Immature Granulocytes % 0.5 %; Mean Corpuscular HGB Conc 33.0 g/dL (31.8-35.4); Mean Corpuscular Hemoglobin 31.1 pg (27.0-31.2); Mean Corpuscular Volume 94.2 fl (81-99); Nucleated Red Blood Cells % 0 %; Platelet Count 237 K/mm3 (142-424); Red Blood Count 4.12 M/mm3 (4.20-5.40); Red Cell Distribution Width-SD 46.3 fL; White Blood Count 6.7 K/mm3 (4.8-10.8)
[2025-05-30 12:55] LABS: Alanine Aminotransferase 20 U/L (12-78); Albumin Level 4.8 g/dl (3.5-5.0); Alkaline Phosphatase 88 U/L (38-126); Anion Gap 9.9 mEq/L (5-15); Aspartate Amino Transferase 40 U/L (14-36); Bilirubin,Direct 0.1 mg/dl (0.0-0.4); Bilirubin,Indirect 1.3 mg/dL (0.0-0.9); Bilirubin,Total 1.4 mg/dl (0.2-1.3); Bilirubin,Unconjugated 1.3 mg/dL (0.0-1.1); Blood Urea Nitrogen 22 mg/dl (7-17); Calcium 10.0 mg/dl (8.4-10.2); Carbon Dioxide 27 mmol/L (22.0-30.0); Chloride 102 mmol/L (98-107); Cholesterol 176 mg/dl (140-200); Creatinine,Serum 1.30 mg/dl (0.52-1.04); Estimated Glomerular Filt Rate 40 ml/min (>60); GFR (African American) 49 ML/MIN (>60); Glucose 91 mg/dl (74-100); HDL Cholesterol 73 mg/dl (40-60); Magnesium 1.6 mg/dl (1.6-2.3); Potassium 4.9 mmoL/L (3.5-5.1); Sodium 134 mmol/L (136-145); Total Protein,Serum 7.1 g/dl (6.3-8.2); Triglycerides 133 mg/dl (30-150)
[2025-05-30 13:13] LABS: Free T4 (Free Thyroxine) 1.21 ng/dl (0.78-2.19)
[2025-05-30 13:27] LABS: Thyroid Stimulating Hormone 2.57 uIU/mL (0.465-4.68)
== END 2025-05-30 23:59 | disposition home or self-care (01) ==
LOC: LAB 11:05
PROVIDERS: PCP Family Medicine; Visit Provider Physician Assistant
DX: E78.5 Hyperlipidemia, unspecified (principal); I10 Essential (primary) hypertension
CPT/HCPCS: 36415; 80048; 80061; 80076; 83735; 84439; 84443; 85025